=== PATIENT | female | born 1970 | race Caucasian/White ===

== ENCOUNTER 2019-01-06 13:27 | Emergency (ER) | payer SELFPAY ==
[2019-01-06 13:32] VITALS: TEMP 98; BMI 25.4
[2019-01-06] MEDS ORDERED: SODIUM CHLORIDE 1,000 ML IV STA (13:51)
[2019-01-06] MEDS ORDERED: ACETAMINOPHEN 1000 MG/100 ML VIAL (NON FORMULARY) IVPB ONE (13:51)
--- NOTE | 2019-01-06 13:52 | PDOC ---
History of Present Illness - General Chief Complaint: Pain Stated Complaint: ABD PAIN Time Seen by Provider: 01/06/19 13:37 History Source: Patient, Spouse () Exam Limitations: Language Barrier - History of Present Illness Initial Comments: 01/06/19 14:14 Pt is a 48yo F with no significant PMH presenting to ED with complaints of abdominal pain and vomiting that started this morning. Pt states that she [place] the [place] with [place]. She was eating popcorn and developed the pain. She states the pain is a burning pain in the lower abdomen. She vomited 3 times (nbnb). The pain has been constant, feels like a burning, does not radiate, has not had this pain before. Endorses nausea. She also started her period today. LMP was 2 months ago and pt states she has had regular periods. Last BM was this morning. Denies constipation, flank pain, dysuria, frequency, urgency, fevers, chills, recent travel, sick contacts, chest pain, sob, back pain. PMD: none PSH: with tubal ligation PMH: none Allergies: nkda Meds: none Past History - Past Medical History Allergies/Adverse Reactions: Allergies Allergy/AdvReac Type Severity Reaction Status Date / Time No Known Allergies Allergy Verified 01/06/19 13:32 Home Medications: Ambulatory Orders Iron Polysaccharide Complex [Ferrex 150] 150 mg PO DAILY #30 capsule 01/06/19 Naproxen 500 mg PO BID #10 tablet 01/06/19 COPD: No - Suicide/Smoking/Psychosocial Hx Smoking History: Never smoked Review of Systems - Review of Systems Constitutional: No: Chills, Fever, Weakness HEENTM: No: Symptoms Reported Respiratory: No: Cough, Shortness of Breath Cardiac (ROS): No: Chest Pain, Lightheadedness, Palpitations, Syncope ABD/GI: Yes: See HPI, Nausea, Vomiting, Abdominal cramping. No: Constipated, Diarrhea, Rectal Bleeding, Tarry Stools : Yes: Other (vaginal bleeding due to menstruation). No: Burning, Dysuria, Hematuria Musculoskeletal: No: Back Pain, Joint Pain Integumentary: No: Symptoms Reported Neurological: No: Symptoms reported *Physical Exam - Vital Signs Last Vital Signs Temp Pulse Resp BP Pulse Ox 98 F 53 L 18 135/61 100 01/06/19 13:29 01/06/19 13:29 01/06/19 13:29 01/06/19 13:29 01/06/19 13:29 - Physical Exam General Appearance: Yes: Nourished, Appropriately Dressed, Mild Distress HEENT: positive: EOMI, AVI, Pale Conjunctivae Neck: positive: Trachea midline, Supple. negative: Lymphadenopathy (R), Lymphadenopathy (L) Respiratory/Chest: positive: Lungs Clear, Normal Breath Sounds. negative: Crackles, Wheezing Cardiovascular: positive: Regular Rhythm, S1, S2, Bradycardia. negative: Edema , JVD, Murmur Vascular Pulses: Carotid (R): 2+, Carotid (L): 2+, Dorsalis-Pedis (R): 2+, Doralis-Pedis (L): 2+ Gastrointestinal/Abdominal: positive: Normal Bowel Sounds, Tender (suprapubic tendnerness. No RLQ, LLQ, RUQ, Epigastric tenderness), Soft. negative: Guarding , Rebound Musculoskeletal: negative: CVA Tenderness Extremity: positive: Normal Capillary Refill. negative: Swelling, Calf Tenderness Integumentary: positive: Normal Color, Dry, Warm Neurologic: positive: sap business analyst II-XII NML intact, Fully Oriented, Alert, Normal Mood/ Affect, Normal Response, Motor Strength 01/06 ED Treatment Course - LABORATORY CBC & Chemistry Diagram: 01/06/19 14:00 01/06/19 14:00 Medical Decision Making - Medical Decision Making 01/06/19 14:18 Pt is a 48yo F with no significant PMH presenting to ED with complaints of abdominal pain and vomiting that started this morning. Pt states that she was at the cinema with her children. She was eating popcorn and developed the pain. She states the pain is a burning pain in the lower abdomen. She vomited 3 times (nbnb). The pain has been constant, feels like a burning, does not radiate, has not had this pain before. Endorses nausea. She also started her period today. LMP was 2 months ago and pt states she has had regular periods. Last BM was this morning. Denies constipation, flank pain, dysuria, frequency, urgency, fevers, chills, recent travel, sick contacts, chest pain, sob, back pain. Vitals: bradycardia, afebrile, normotensive PE: suprapubic tenderness. No RLQ or LLQ tenderness. no rebound, negative rosving, no epigastric or ruq tenderness. no cva tenderness. Ddx includes but not limited to cystitis, pyelonephritis, nephrolithiasis, , fibroids, torsion, appendicitis, colitis, aaa likely uti or pelvic related. will hold off on imaging for now -labs, ua, ucx -fluids, tylenol, zofran. -reassess 01/06/19 15:13 labs significant for hgb 7.5 no prior to compare to. Pt does not have pmd. decreased MCV and increased RDW leans diagnosis toward RIGO more than acute bleed. Pt is also not tachycardic or hypotensive. will order CTAP chemistries wnl. 01/06/19 16:[address] Avitia who agrees that low hgb is due to RIGO recommended Ferrex 150 or iron gluconate 325 or iron sulfate 325 daily. 01/06/19 17:29 CT showed L ovarian cyst 2cm and uterine fibroid. Pt most likely has pain due to fibroid or cyst. Pt feeling better after Tylenol. Feels ready to be dc home. Pt given rx for naproxen and iron pills. given pmd f/u as well as referrals to heme and converting operator. safe for dc home. given return precautions. *DC/Admit/Observation/Transfer Diagnosis at time of Disposition: Iron deficiency anemia Qualifiers: Iron deficiency anemia type: unspecified iron deficiency Qualified Code(s): D50.9 - Iron deficiency anemia, unspecified Uterine fibroid Qualifiers: Uterine leiomyoma location: unspecified location Qualified Code(s): D25.9 - Leiomyoma of uterus, unspecified - Discharge Dispostion Disposition: HOME Condition at time of disposition: Improved Decision to Admit order: No - Prescriptions Prescriptions: Iron Polysaccharide Complex [Ferrex 150] 150 mg PO DAILY #30 capsule Naproxen 500 mg PO BID #10 tablet - Referrals Referrals: Villa Avitia MD [Staff Physician] - Yajaira Mcginnis MD [Staff Physician] - - Patient Instructions Printed Discharge Instructions: DI for Uterine Fibroids, DI for Iron Deficiency Anemia-Adult Additional Instructions: Hoy te vieron en la brissa de emergencias por dolor en el abdomen. La tomografa computarizada muestra un fibroide en el tero, esta es la causa ms probable de durán dolor. Sudeep tiene anemia por deficiencia de estefania. Recomiendo oh a un mdico de atencin primaria. Se hizo ashley jannet para usted. Recibir ashley llamada telefnica en un par de canales confirmando la fecha de la jannet. Puede cambiar la fecha si es necesario. Sudeep recomiendo hacer ashley jannet con un hematlogo y un obstetra / gineclogo. La informacin se proporciona a continuacin. Ashley receta fue enviada a durán farmacia para pastillas de estefania. Garrochales puede ser costoso. Si es demasiado ascencio, puede obtener 325mg de sulfato ferroso o 325mg de gluconato ferroso que se pueden encontrar sin receta. Pdale ayuda al farmacutico. Tamyvonne se envi ashley receta a durán farmacia para un medicamento para el dolor llamado Naproxen. Antoni segn las indicaciones. Regrese a la brissa de emergencias si el dolor empeora, no puede comer, tiene fiebre, se desmaya, el sangrado empeora o si aparece algn sntoma nuevo. Johana You were seen in the emergency room today for pain in the abdomen. The CT scan showed a fibroid in the uterus, this is the most likely cause for your pain. You also have iron deficiency anemia. I recommend seeing a primary care doctor. An appointment was made for you. You will get a phone call in a couple days confirming the appointment date. You can change the date if you need to. I also recommend making an appointment with a jewelry consultant and a converting operator. Information is provided below. A prescription was sent to your pharmacy for iron pills. This may be expensive. If it is too expensive you can get Ferrous Sulfate 325mg or Ferrous Gluconate 325mg which can be found over the counter. Ask the pharmacist for help. A prescription was also sent to your pharmacy for a pain medication called Naproxen. Take as directed. Come back to the emergency room if pain gets worse, you are unable to eat, you develop fever, you pass out, bleeding gets worse or if any new concerning symptom develops. Thank you Print Language: MONGOLIAN - Post Discharge Activity
[2019-01-06] MEDS ORDERED: ONDANSETRON 4 MG/2 ML VIAL IVPB ONE (13:55)
--- NOTE | 2019-01-06 13:55 | PDOC ---
Documentation entered by Tano Killian SCRIBE, acting as scribe for Milad Cole MD. Milad Cole MD: This documentation has been prepared by the Constantin echevarria Daniel, SCRIBE, under my direction and personally reviewed by me in its entirety. I confirm that the documentation accurately reflects all work, treatment, procedures, and medical decision making performed by me. Attending Attestation - Resident Resident Name: VirginiaSamina - ED Attending Attestation I have performed the following: I have examined & evaluated the patient, The case was reviewed & discussed with the resident, I agree w/resident's findings & plan, Exceptions are as noted - HPI HPI: 01/06/19 13:53 The patient is a 48 year old female with no past medical history here today for evaluation of superpubic abdominal pain. The patient reports that she pain began today when she was at the theater with her sons. She describes it as a burning sensation and notes 3 episodes of associated vomiting. Patient reports that her menstrual period began today and her LMP was 2 months ago. Patient denies headache, lightheadedness. Denies fever, chills. Denies chest pain, shortness of breath. Denies nausea, diarrhea. Denies lower extremity edema. Denies urinary symptoms. Denies travel or suspicious food intake. Allergies: NKA - Physicial Exam PE: 01/06/19 13:56 GENERAL: Awake, alert, and fully oriented, +uncomfortable appearing HEAD: No signs of trauma EYES: EOMI, sclera anicteric, conjunctiva clear ENT: Auricles normal inspection, hearing grossly normal, nares patent NECK: Normal ROM, supple, ABDOMEN: Soft, TTP suprapubic. No guarding, no rebound. No masses EXTREMITIES: Normal range of motion, no edema. No clubbing or cyanosis. No cords, erythema, or tenderness NEUROLOGICAL: Cranial nerves II through XII grossly intact. Normal speech SKIN: Warm, Dry, normal turgor, no rashes or lesions noted. - Medical Decision Making 01/06/19 13:56 A portion of this note was documented by scrib[employer] services under my direction. I have reviewed the details of the note, within reason, and agree with the documentation with the following case summary and management plan written by me. Patient treated in the ED. Nursing notes are reviewed and incorporated into the medical decision-making. Vital signs reviewed. Peripheral IV access obtained by the nurse, laboratory studies are drawn and sent, reviewed and interpreted by myself. Vital Signs Temp Pulse Resp BP Pulse Ox 98 F 53 L 18 135/61 100 01/06/19 13:29 01/06/19 13:29 01/06/19 13:29 01/06/19 13:29 01/06/19 13:29 48 year old female with no past medical history presents with sudden onset of suprapubic pain. Differential includes cystitis, colitis, diverticulitis, fibroids, appendicitis. Will obtain labs and UA/UC. If UA does not demonstrate any urine infection, should obtain CT scan of abdomen and pelvis to r/o appendicitis. Reassess. 01/06/19 15:16 CBC, BMP 01/06/19 14:00 01/06/19 14:00 CMP Sodium 138 mmol/L (136-145) 01/06/19 14:00 Potassium 3.8 mmol/L (3.5-5.1) 01/06/19 14:00 Chloride 107 mmol/L (98-107) 01/06/19 14:00 Carbon Dioxide 28 mmol/L (21-32) 01/06/19 14:00 Anion Gap 3 MMOL/L (8-16) L 01/06/19 14:00 BUN 13 mg/dL (7-18) 01/06/19 14:00 Creatinine 0.5 mg/dL (0.55-1.3) L 01/06/19 14:00 Creat Clearance w eGFR 131.69 (>60) 01/06/19 14:00 Random Glucose 117 mg/dL (74-106) H 01/06/19 14:00 Calcium 8.2 mg/dL (8.5-10.1) L 01/06/19 14:00 Total Bilirubin 0.2 mg/dL (0.2-1) 01/06/19 14:00 AST 10 U/L (15-37) L 01/06/19 14:00 ALT 15 U/L (13-61) 01/06/19 14:00 Alkaline Phosphatase 58 U/L (45-117) 01/06/19 14:00 Total Protein 7.2 g/dl (6.4-8.2) 01/06/19 14:00 Albumin 3.6 g/dl (3.4-5.0) 01/06/19 14:00 Lipase 166 U/L (73-393) 01/06/19 14:00 Serum , Qual Negative 01/06/19 14:00 01/06/19 15:47 Urine Test Results Urine Color Yellow 01/06/19 15:18 Urine Appearance Clear 01/06/19 15:18 Urine pH 7.0 (5.0-8.0) 01/06/19 15:18 Ur Specific [place] 1.014 (1.010-1.035) 01/06/19 15:18 Urine Protein Negative (NEGATIVE) 01/06/19 15:18 Urine Glucose (UA) Negative (NEGATIVE) 01/06/19 15:18 Urine Ketones Negative (NEGATIVE) 01/06/19 15:18 Urine Blood 3+ (NEGATIVE) H 01/06/19 15:18 Urine Nitrite Negative (NEGATIVE) 01/06/19 15:18 Urine Bilirubin Negative (NEGATIVE) 01/06/19 15:18 Ur Leukocyte Esterase Negative (NEGATIVE) 01/06/19 15:18 Pt is currently on her menstrual cycle as well. 01/06/19 16:57 Dr. Coleman had spoken with Dr. Avitia (from Heme/Onc). Recommended that she be initiated on iron gluconate 325 mg daily or ferrous sulfate for the low iron. At this time, I suspect that this may potentially be iron deficiency anemia. Given that she is not exhibiting symptoms of symptomatic anemia, will defer on blood transfusion. Pt can follow up as an outpatient. CT scan of abdomen and pelvis demonstrates some ?bowel wall thickening and ? gallbladder wall thickening. However, pt has no upper abdominal pain and the pain is distinctly suprapubic. I do not suspect colitis or acute cholecystitis at this time. However, I suspect with her menstrual cycle and fibroids that is her likely source of pain. The patient was given IV tylenol which significantly improved the pain and resolved the issue. At this time, we will prescribe NSAIDS for pain control and have patient follow up with [facility]. Furthermore, we have arranged a follow up appointment with the IM clinic. Return precautions given.
[2019-01-06] MEDS ORDERED: ONDANSETRON 4 MG/2 ML VIAL ONE (14:16)
[2019-01-06] MEDS ORDERED: ACETAMINOPHEN INJECTION 100 ML IVPB ONE (14:16)
[2019-01-06 14:24] LABS: BASO % 0.8 % (0-2.0); EOS % 0.9 % (0-4.5); HEMATOCRIT 25.4 % (32.4-45.2); HEMOGLOBIN 7.5 GM/dL (10.7-15.3); LYMPH % 12.2 % (8-40); MCHC 29.5 g/dl (32.0-36.0); MEAN CELL VOLUME 57.5 fl (80-96); MEAN PLT VOLUME 9.1 fl (7.5-11.1); MONO % 4.5 % (3.8-10.2); NEUT % 81.6 % (42.8-82.8); PLATELET COUNT 283 K/MM3 (134-434); RBC 4.41 M/mm3 (3.60-5.2); RDW 20.5 % (11.6-15.6); WHITE BLOOD COUNT 10.3 K/mm3 (4.0-10.0)
[2019-01-06 14:59] LABS: ALBUMIN 3.6 g/dl (3.4-5.0); ALK PHOS 58 U/L (45-117); ANION GAP 3 MMOL/L (8-16); BILIRUBIN,TOTAL 0.2 mg/dL (0.2-1); BLOOD UREA NITROGEN 13 mg/dL (7-18); CALCIUM 8.2 mg/dL (8.5-10.1); CHLORIDE 107 mmol/L (98-107); CO2 28 mmol/L (21-32); CREATININE 0.5 mg/dL (0.55-1.3); GLUCOSE,RANDOM 117 mg/dL (74-106); LIPASE 166 U/L (73-393); POTASSIUM 3.8 mmol/L (3.5-5.1); SGOT/AST 10 U/L (15-37); SGPT/ALT 15 U/L (13-61); SODIUM 138 mmol/L (136-145); TOT PROT 7.2 g/dl (6.4-8.2)
[2019-01-06 15:27] LABS: EPI CELLS 1.7 /HPF (0-5/HPF); URINE APPEARANCE CLEAR; URINE BACTERIA 45.2 /hpf (NEGATIVE); URINE BILIRUBIN NEGATIVE (NEGATIVE); URINE CASTS 0 /lpf (0-8); URINE COLOR YELLOW; URINE GLUCOSE (UA) NEGATIVE (NEGATIVE); URINE KETONE NEGATIVE (NEGATIVE); URINE LEUK ESTERASE NEGATIVE (NEGATIVE); URINE NITRITE NEGATIVE (NEGATIVE); URINE PROTEIN NEGATIVE (NEGATIVE); URINE RBC 274 /hpf (0-4); URINE UROBILINOGEN 0.2 mg/dL (0.2-1.0); URINE WBC 1 /hpf (0-5)
[2019-01-06] MEDS ORDERED: KETOROLAC TROMETHAMINE 30 MG/1 ML VIAL IVPUSH ONE (16:55)
[2019-01-06 17:32] VITALS: BP 119/72; PULSE 69
== END 2019-01-06 17:20 | disposition home or self-care (01) ==
LOC: JER 13:27
PROC: 3E033NZ Introduction of Analgesics, Hypnotics, Sedatives into Peripheral Vein, Percutaneous Approach (ICD-10-PCS; principal; 2019-01-06)
PROC: 3E033GC Introduction of Other Therapeutic Substance into Peripheral Vein, Percutaneous Approach (ICD-10-PCS; 2019-01-06)
DX: D25.9 Leiomyoma of uterus, unspecified (principal); N83.202 Unspecified ovarian cyst, left side; D50.9 Iron deficiency anemia, unspecified
CPT/HCPCS: 36415; 74177-TC; 80053; 81003; 83690; 84703; 85025; 99282-25; J0131; J7030